=== PATIENT | female | born 1950 | race Caucasian/White ===

== ENCOUNTER 2021-06-06 07:12 | Day surgery (SDC) | payer MEDICARE ==
[~2021-06-06] VITALS: Ht 152.4 cm; Wt 79.5 kg
[~2021-06-06 07:12] MED LIST: ASPIRIN 81 MG CHEWABLE TABLET PO ONE; DIAZEPAM 5 MG TABLET PO ONE; DiphenhydrAMINE HCL 50 MG CAPSULE PO ONE; SODIUM CHLORIDE 0.9% 1,000 ML IV ONE; SODIUM CHLORIDE 0.9% 1,000 ML ONE
[2021-06-06] MEDS ORDERED: METO50 PO (07:43)
[2021-06-06] MEDS ORDERED: ASPI-1450 PO (07:43)
[2021-06-06] MEDS ORDERED: ATOR20TA65 PO (07:43)
[2021-06-06] MEDS ORDERED: B,C/1TAB PO (07:43)
[2021-06-06] MEDS ORDERED: AMOX1TAB16 PO (07:43)
[2021-06-06] MEDS ORDERED: AMIO200 PO (07:43)
[2021-06-06] MEDS ORDERED: ASPIRIN 81 MG CHEWABLE TABLET ONE (08:18)
[2021-06-06] MEDS ORDERED: DiphenhydrAMINE HCL 50 MG CAPSULE ONE (08:18)
[2021-06-06] MEDS ORDERED: DIAZEPAM 5 MG TABLET ONE (08:18)
[2021-06-06 08:21] LABS: GLUCOMETER DEV NAME(LOC) SDS.; GLUCOSE,POINT OF CARE 100 MG/DL (70-110)
[2021-06-06 08:47] VITALS: BP 196/63
[2021-06-06] MEDS ORDERED: IOHEXOL 300 MG/ML 150 ML VIAL ONE (08:51)
[2021-06-06] MEDS ORDERED: LIDOCAINE/PF 1% 30 ML VIAL ONE (08:51)
[2021-06-06] MEDS ORDERED: HEPARIN SODIUM 1000 UNITS/NS 1,000 ML ONE (08:51)
[2021-06-06] MEDS ORDERED: IOHEXOL 300 MG/ML 100 ML VIAL ONE (08:51)
[2021-06-06] MEDS ORDERED: SODIUM BICARBONATE 50 MEQ/50 ML VIAL ONE (08:51)
[2021-06-06] MEDS ORDERED: IOHEXOL 300 MG/ML 50 ML VIAL ONE (08:51)
[2021-06-06] MEDS ORDERED: FentaNYL CITRATE PF 100 MCG/2 ML VIAL ONE (09:03)
[2021-06-06] MEDS ORDERED: MIDAZOLAM HCL 2 MG/2 ML VIAL ONE (09:04)
[2021-06-06] MEDS ORDERED: ONDANSETRON HCL 4 MG/2 ML VIAL ONE (09:09)
[2021-06-06] MEDS ORDERED: MIDAZOLAM HCL 2 MG/2 ML VIAL IVP ONE ×2 (09:45)
[2021-06-06] MEDS ORDERED: FentaNYL CITRATE PF 100 MCG/2 ML VIAL IVP ONE ×2 (09:45)
[2021-06-06] MEDS ORDERED: HEPARIN SODIUM 1000 UNITS/NS 1,000 ML IARTER ONE (09:45)
[2021-06-06] MEDS ORDERED: IOHEXOL 300 MG/ML 150 ML VIAL IARTER ONE (09:45)
[2021-06-06] MEDS ORDERED: LIDOCAINE 1% 30 ML/SOD BICARB 8.4% 4 ML SQ ONE (09:45)
[2021-06-06 10:01] VITALS: BP 173/71
== END 2021-06-06 14:35 | disposition home or self-care (01) ==
LOC: CATHLAB 07:12
PROVIDERS: ATTEND Internal Medicine Interventional Cardiology
DX: R94.39 Abnormal result of other cardiovascular function study (principal); I07.1 Rheumatic tricuspid insufficiency; I25.10 Atherosclerotic heart disease of native coronary artery without angina pectoris; E11.22 Type 2 diabetes mellitus with diabetic chronic kidney disease; I13.2 Hypertensive heart and chronic kidney disease with heart failure and with stage 5 chronic kidney disease, or end stage renal disease; N18.6 End stage renal disease; I50.20 Unspecified systolic (congestive) heart failure; I42.9 Cardiomyopathy, unspecified; E66.01 Morbid (severe) obesity due to excess calories; Z79.82 Long term (current) use of aspirin; Z79.899 Other long term (current) drug therapy; Z99.2 Dependence on renal dialysis; Z82.49 Family history of ischemic heart disease and other diseases of the circulatory system; Z83.3 Family history of diabetes mellitus
CPT/HCPCS: 82962; 93005; 93458; 99152; 99153; C1760; J1644; J2250; J3010; J3490 ×2; J7030; Q9967; J2405